=== PATIENT | female | born 1975 | race Caucasian/White ===

== ENCOUNTER 2022-12-22 13:10 | Outpatient (CLI) | payer OTHER, SELFPAY | END 2022-12-22 13:11 | disposition home or self-care (01) | LOC: NFLDREF 12-26 06:31 | PROVIDERS: Referring Provider Family Medicine; Visit Provider Nurse Practitioner Family | DX: R30.0 Dysuria (principal); N30.90 Cystitis, unspecified without hematuria; N30.01 Acute cystitis with hematuria | CPT/HCPCS: 87086 ==